=== PATIENT | female | born 1995 | race Caucasian/White ===

== ENCOUNTER 2022-12-25 12:26 | Emergency (ER) | payer BC ==
[~2022-12-25] VITALS: Ht 170.2 cm; Wt 115.7 kg
[2022-12-25 12:37] VITALS: BP 143/102
[2022-12-25 15:19] LABS: Source, Urine Clean Catch
[2022-12-25 15:27] LABS: Appearance, Urine Clear (Clear); Bilirubin, Urine Neg (Neg); Blood, Urine 5+ (Neg); Color, Urine Yellow (P-Yellow); Glucose Qualitative, Urine Neg (Neg); Ketones, Urine Neg (Neg); Leukocyte Esterase, Urine Neg (Neg); Nitrite, Urine Neg (Neg); Protein, Urine 2+ (Neg); Urobilinogen, Urine NORM (Normal)
[2022-12-25 15:43] LABS: Squamous Epithelial Cells Mod /hpf (Few)
[2022-12-25 15:44] LABS: Bacteria Many /hpf; Mucus Mod (0-Heavy)
[2022-12-25] MEDS ORDERED: CIPR500 PO (16:29)
[2022-12-25] MEDS ORDERED: Percocet 5-3251 EACH PO (16:29)
== END 2022-12-25 16:54 | disposition home or self-care (01) ==
LOC: ER 12:26
PROVIDERS: Student in an Organized Health Care Education/Training Program
DX: N12 Tubulo-interstitial nephritis, not specified as acute or chronic (principal)
CPT/HCPCS: 81001; 81025; 83605; 84703; 87077; 87086; 87186; 96361; 96365; 96375; 99284-25; A9270; J0696; J2060; J7030

== ENCOUNTER → 2022-12-25 | Outpatient (CLI) | payer BC ==
[~2022-12-25] MED LIST: CIPR500 PO; Percocet 5-3251 EACH PO
[2022-12-25 11:39] LABS: BASOPHILS ABSOLUTE AUTO 0.03 K/mm3 (0.00-0.23); BASOPHILS PERCENT AUTO 0 % (0-2); EOSINOPHILS ABSOLUTE AUTO 0.01 K/mm3 (0.00-0.68); EOSINOPHILS PERCENT AUTO 0 % (0-6); Hematocrit 43.4 % (33.0-51.0); IMMATURE GRAN ABSOLUTE AUTO 0.02 K/mm3 (0.00-0.10); IMMATURE GRAN PERCENT AUTO 0 % (0-1); LYMPHOCYTES ABSOLUTE AUTO 1.17 K/mm3 (0.84-5.20); LYMPHOCYTES PERCENT AUTO 11 % (21-46); MONOCYTES ABSOLUTE AUTO 0.94 K/mm3 (0.16-1.47); MONOCYTES PERCENT AUTO 9 % (4-13); Mean Corpuscular HGB 28.8 pg (26.0-34.0); Mean Corpuscular HGB Conc 34.6 g/dL (31.5-36.5); Mean Corpuscular Volume 83 fL (80-100); Mean Platelet Volume 9.4 fL (9.1-12.4); NEUTROPHILS ABSOLUTE AUTO 8.23 K/mm3 (1.96-9.15); NEUTROPHILS PERCENT AUTO 79 % (41-73); Platelet Count 228 K/mm3 (150-400); RDW Coefficient Variation 13.1 % (11.7-14.2); RDW Standard Deviation 39.4 fL (35.1-46.3); Red Blood Cell Count 5.21 M/mm3 (3.80-5.20)
[2022-12-25 11:59] LABS: Albumin, Blood 3.9 g/dL (3.4-5.0); Albumin/Globulin Ratio 0.8 (0.8-1.8); Bilirubin, Total 0.3 mg/dL (0.1-1.0); Bun/Creatinine Ratio 13.8 (12.0-20.0); Creatinine, Blood 0.8 mg/dL (0.40-1.00); Globulin, Blood 4.6 g/dL (2.2-4.0); Potassium, Blood 3.5 mmol/L (3.5-5.5); Total Protein, Blood 8.5 g/dL (6.4-8.2)
== END | disposition home or self-care (01) ==
LOC: LAB 11:35 → LAB SHORT 11:35
PROVIDERS: Physician Assistant
DX: R50.9 Fever, unspecified (principal); R10.9 Unspecified abdominal pain
CPT/HCPCS: 80053; 85025; 87077; 87086; 87186

== ENCOUNTER 2025-02-21 03:15 | Emergency (ER) | payer OTHER ==
[~2025-02-21] VITALS: Ht 170.2 cm; Wt 93.0 kg
[2025-02-21] MEDS ORDERED: NS 1,000 ML IV SCH (03:30)
[2025-02-21] MEDS ORDERED: Ondansetron HCl 2 MG / ML 2ML Vial IV ONE (03:30)
[2025-02-21 03:41] LABS: BASOPHILS ABSOLUTE AUTO 0.05 K/mm3 (0.00-0.23); BASOPHILS PERCENT AUTO 1 % (0-2); EOSINOPHILS ABSOLUTE AUTO 0.15 K/mm3 (0.00-0.68); EOSINOPHILS PERCENT AUTO 1 % (0-6); Hematocrit 42.6 % (33.0-51.0); Hemoglobin 14.4 g/dL (11.5-16.0); IMMATURE GRAN ABSOLUTE AUTO 0.03 K/mm3 (0.00-0.10); IMMATURE GRAN PERCENT AUTO 0 % (0-1); LYMPHOCYTES ABSOLUTE AUTO 2.93 K/mm3 (0.84-5.20); LYMPHOCYTES PERCENT AUTO 28 % (21-46); MONOCYTES ABSOLUTE AUTO 0.74 K/mm3 (0.16-1.47); MONOCYTES PERCENT AUTO 7 % (4-13); Mean Corpuscular HGB Conc 33.8 g/dL (31.5-36.5); Mean Corpuscular Volume 87 fL (80-100); NEUTROPHILS ABSOLUTE AUTO 6.58 K/mm3 (1.96-9.15); NEUTROPHILS PERCENT AUTO 63 % (41-73); NRBC ABSOLUTE 0.00 K/mm3 (0.00-0.02); NRBC Auto 0.0 /100 WBC (0.0-0.2); Platelet Count 244 K/mm3 (150-400); RDW Coefficient Variation 12.2 % (11.7-14.2); RDW Standard Deviation 39.1 fL (35.1-46.3)
[2025-02-21 03:59] LABS: Alanine Aminotransfer (ALT/SGP 23.0 U/L (12-78); Albumin, Blood 3.8 g/dL (3.4-5.0); Albumin/Globulin Ratio 0.9 (0.8-1.8); Anion Gap 10.0 mmol/L (3-11); Aspartate Aminotrans (AST/SGOT 17.0 U/L (12-37); Bilirubin, Total 0.6 mg/dL (0.1-1.0); Blood Urea Nitrogen 12.0 mg/dL (8-24); CO2, Blood 25.0 mmol/L (21-32); Calcium, Blood 8.9 mg/dL (8.5-10.1); Chloride, Blood 106.0 mmol/L (98-108); Creatinine, Blood 0.58 mg/dL (0.40-1.00); Globulin, Blood 4.2 g/dL (2.2-4.0); Glucose, Blood 112.0 mg/dL (70-99); Potassium, Blood 3.8 mmol/L (3.5-5.5); Sodium, Blood 137.0 mmol/L (136-145); Total Protein, Blood 8.0 g/dL (6.4-8.2)
[2025-02-21] MEDS ORDERED: Haloperidol Lactate Inj. 5 MG/ML Injection IV ONE (04:05)
[2025-02-21] MEDS ORDERED: D5W-1/2NS 1,000 ML IV SCH (04:05)
[2025-02-21 04:45] VITALS: BP 105/56
[2025-02-21 04:48] LABS: Source, Urine Voided
[2025-02-21 05:12] LABS: Bilirubin, Urine Neg (Neg); Color, Urine Yellow (P-Yellow); Glucose Qualitative, Urine Neg (Neg); Ketones, Urine Neg (Neg); Leukocyte Esterase, Urine 1+ (Neg); Protein, Urine 2+ (Neg); Specific Gravity, Urine 1.010 (1.003-1.022); Urobilinogen, Urine NORM (Normal)
[2025-02-21 05:21] LABS: Red Blood Cells, Urine 0-2 /hpf (0-2)
[2025-02-21] MEDS ORDERED: ONDA4ODT MM (05:23)
[2025-02-21] MEDS ORDERED: Vitamin B-625 MG PO (13:48)
== END 2025-02-21 05:42 | disposition home or self-care (01) ==
LOC: ER 03:15
PROVIDERS: Emergency Medicine
DX: O99.281 Endocrine, nutritional and metabolic diseases complicating pregnancy, first trimester (principal); M79.18 Myalgia, other site; O99.891 Other specified diseases and conditions complicating pregnancy; O21.9 Vomiting of pregnancy, unspecified; Z3A.01 Less than 8 weeks gestation of pregnancy; E86.0 Dehydration
CPT/HCPCS: 76801; 76817; 80053; 81001; 81003; 81025; 83690; 83735; 84702; 85025; 87077; 87086; 87186; 96361; 96365; 96374; 96375; 99283-25; 99284-25; A9270; J1630; J2405; J3475; J7030; J7042; J7120

== ENCOUNTER 2025-02-21 10:22 | Emergency (ER) | payer OTHER ==
[~2025-02-21] VITALS: Ht 170.2 cm; Wt 93.0 kg
[~2025-02-21 10:22] MED LIST changes: +ONDA4ODT MM
[2025-02-21] MEDS ORDERED: Ondansetron HCl 2 MG / ML 2ML Vial IV ONE (11:00)
[2025-02-21 11:07] LABS: BASOPHILS ABSOLUTE AUTO 0.02 K/mm3 (0.00-0.23); BASOPHILS PERCENT AUTO 0 % (0-2); EOSINOPHILS ABSOLUTE AUTO 0.00 K/mm3 (0.00-0.68); EOSINOPHILS PERCENT AUTO 0 % (0-6); Hematocrit 39.5 % (33.0-51.0); Hemoglobin 13.9 g/dL (11.5-16.0); IMMATURE GRAN ABSOLUTE AUTO 0.04 K/mm3 (0.00-0.10); IMMATURE GRAN PERCENT AUTO 0 % (0-1); LYMPHOCYTES ABSOLUTE AUTO 1.17 K/mm3 (0.84-5.20); LYMPHOCYTES PERCENT AUTO 10 % (21-46); MONOCYTES ABSOLUTE AUTO 0.40 K/mm3 (0.16-1.47); MONOCYTES PERCENT AUTO 3 % (4-13); Mean Corpuscular HGB Conc 35.2 g/dL (31.5-36.5); Mean Corpuscular Volume 85 fL (80-100); NEUTROPHILS ABSOLUTE AUTO 10.15 K/mm3 (1.96-9.15); NEUTROPHILS PERCENT AUTO 86 % (41-73); NRBC ABSOLUTE 0.00 K/mm3 (0.00-0.02); NRBC Auto 0.0 /100 WBC (0.0-0.2); Platelet Count 244 K/mm3 (150-400); RDW Coefficient Variation 12.1 % (11.7-14.2); RDW Standard Deviation 37.6 fL (35.1-46.3)
[2025-02-21 11:52] LABS: Alanine Aminotransfer (ALT/SGP 22.0 U/L (12-78); Albumin, Blood 3.5 g/dL (3.4-5.0); Albumin/Globulin Ratio 0.9 (0.8-1.8); Anion Gap 12.0 mmol/L (3-11); Aspartate Aminotrans (AST/SGOT 14.0 U/L (12-37); Beta HCG, Quantitative, Serum 18533.0 mIU/mL (0-3); Bilirubin, Total 0.5 mg/dL (0.1-1.0); Blood Urea Nitrogen 7.0 mg/dL (8-24); CO2, Blood 19.0 mmol/L (21-32); Calcium, Blood 8.2 mg/dL (8.5-10.1); Chloride, Blood 109.0 mmol/L (98-108); Creatinine, Blood 0.41 mg/dL (0.40-1.00); Globulin, Blood 4.1 g/dL (2.2-4.0); Glucose, Blood 127.0 mg/dL (70-99); Potassium, Blood 3.6 mmol/L (3.5-5.5); Sodium, Blood 136.0 mmol/L (136-145); Total Protein, Blood 7.6 g/dL (6.4-8.2)
[2025-02-21] MEDS ORDERED: Magnesium Sulf 2 GM/Water 50ML 50 ML IV ONE (12:10)
[2025-02-21] MEDS ORDERED: D5W-NS 1,000 ML IV SCH (12:10)
[2025-02-21 13:27] LABS: Source, Urine Clean Catch
[2025-02-21 13:48] LABS: Bilirubin, Urine Neg (Neg); Glucose Qualitative, Urine Neg (Neg); Ketones, Urine 1+ (Neg); Leukocyte Esterase, Urine Neg (Neg); Protein, Urine Neg (Neg); Specific Gravity, Urine 1.005 (1.003-1.022); Urobilinogen, Urine NORM (Normal)
[2025-02-21] MEDS ORDERED: Vitamin B-625 MG PO (13:48)
[2025-02-21 14:05] LABS: Color, Urine Pale Yellow (P-Yellow)
[2025-02-21 15:33] VITALS: BP 165/82
== END 2025-02-21 14:53 | disposition home or self-care (01) ==
LOC: ER 10:22
PROVIDERS: Emergency Medicine
DX: O99.281 Endocrine, nutritional and metabolic diseases complicating pregnancy, first trimester (principal); O99.891 Other specified diseases and conditions complicating pregnancy; E86.0 Dehydration; M79.18 Myalgia, other site; Z3A.01 Less than 8 weeks gestation of pregnancy
CPT/HCPCS: 76801; 76817; 80053; 81003; 83735; 84702; 85025; 96365; 96375; 99284-25; A9270; J2405; J3475; J7042; J7120

== ENCOUNTER 2025-03-01 00:52 | Day surgery (SDC) | payer OTHER ==
[~2025-03-01 00:52] MED LIST changes: +Vitamin B-625 MG PO
[2025-03-01] MEDS ORDERED: Ondansetron HCl 2 MG / ML 2ML Vial IV SCH (06:45)
[2025-03-01] MEDS ORDERED: PRAZ2 PO (08:02)
[2025-03-01] MEDS ORDERED: ESCI20 PO (08:03)
[2025-03-01] MEDS ORDERED: DESV50 PO (08:03)
[2025-03-01 08:05] VITALS: BP 133/65
== END 2025-03-01 09:34 | disposition home or self-care (01) ==
LOC: ATC 00:52
DX: O21.9 Vomiting of pregnancy, unspecified (principal); O99.611 Diseases of the digestive system complicating pregnancy, first trimester; K21.9 Gastro-esophageal reflux disease without esophagitis; Z88.1 Allergy status to other antibiotic agents; Z88.8 Allergy status to other drugs, medicaments and biological substances; Z3A.01 Less than 8 weeks gestation of pregnancy
CPT/HCPCS: 96365; 96375; C1751; J2405; J7120

== ENCOUNTER 2025-03-04 01:36 | Day surgery (SDC) | payer OTHER ==
[~2025-03-04 01:36] MED LIST changes: +DESV50 PO; +ESCI20 PO; +PRAZ2 PO
[2025-03-04] MEDS ORDERED: Ondansetron HCl 2 MG / ML 2ML Vial IV SCH (07:25)
[2025-03-04 16:00] VITALS: BP 107/63
== END 2025-03-04 17:10 | disposition home or self-care (01) ==
LOC: ATC 01:36
DX: O21.9 Vomiting of pregnancy, unspecified (principal); Z3A.00 Weeks of gestation of pregnancy not specified; Z88.1 Allergy status to other antibiotic agents; Z88.8 Allergy status to other drugs, medicaments and biological substances; Z79.899 Other long term (current) drug therapy
CPT/HCPCS: 96361; 96374; J2405; J7120

== ENCOUNTER 2025-03-06 05:31 | Day surgery (SDC) | payer OTHER ==
[2025-03-06] MEDS ORDERED: Ondansetron HCl 2 MG / ML 2ML Vial IV SCH (06:50)
[2025-03-06 09:07] VITALS: BP 114/52
[2025-03-06] MEDS ORDERED: METO10 PO (09:11)
[2025-03-06] MEDS ORDERED: FAMO20 PO (09:12)
[2025-03-06] MEDS ORDERED: ONDA4ODT MM (09:12)
== END 2025-03-06 10:10 | disposition home or self-care (01) ==
LOC: ATC 05:31
DX: O21.9 Vomiting of pregnancy, unspecified (principal); O99.280 Endocrine, nutritional and metabolic diseases complicating pregnancy, unspecified trimester; E04.9 Nontoxic goiter, unspecified; Z3A.00 Weeks of gestation of pregnancy not specified; Z79.899 Other long term (current) drug therapy; Z88.1 Allergy status to other antibiotic agents; Z88.8 Allergy status to other drugs, medicaments and biological substances
CPT/HCPCS: 96361; 96374; J2405; J7120

== ENCOUNTER 2025-03-08 01:46 | Day surgery (SDC) | payer OTHER ==
[~2025-03-08 01:46] MED LIST changes: +FAMO20 PO; +METO10 PO
[2025-03-08] MEDS ORDERED: Ondansetron HCl 2 MG / ML 2ML Vial IV SCH (06:55)
[2025-03-08 10:00] VITALS: BP 109/50
== END 2025-03-08 11:09 | disposition home or self-care (01) ==
LOC: ATC 01:46
DX: O21.9 Vomiting of pregnancy, unspecified (principal); O99.280 Endocrine, nutritional and metabolic diseases complicating pregnancy, unspecified trimester; E04.9 Nontoxic goiter, unspecified; Z88.8 Allergy status to other drugs, medicaments and biological substances; Z88.1 Allergy status to other antibiotic agents
CPT/HCPCS: 96361; 96374; J2405; J7120

== ENCOUNTER 2025-03-11 00:33 | Day surgery (SDC) | payer OTHER ==
[2025-03-11] MEDS ORDERED: Ondansetron HCl 2 MG / ML 2ML Vial IV SCH (07:05)
[2025-03-11 15:30] VITALS: BP 127/57
== END 2025-03-11 14:35 | disposition home or self-care (01) ==
LOC: ATC 00:33
DX: O21.9 Vomiting of pregnancy, unspecified (principal); O99.281 Endocrine, nutritional and metabolic diseases complicating pregnancy, first trimester; E04.9 Nontoxic goiter, unspecified; Z88.1 Allergy status to other antibiotic agents; Z88.8 Allergy status to other drugs, medicaments and biological substances; Z3A.00 Weeks of gestation of pregnancy not specified
CPT/HCPCS: 96361; 96374; J2405; J7120

== ENCOUNTER 2025-03-13 04:33 | Day surgery (SDC) | payer OTHER ==
[2025-03-13] MEDS ORDERED: Ondansetron HCl 2 MG / ML 2ML Vial IV SCH (06:55)
[2025-03-13 15:34] VITALS: BP 127/64
== END 2025-03-13 16:36 | disposition home or self-care (01) ==
LOC: ATC 04:33
DX: O21.9 Vomiting of pregnancy, unspecified (principal); Z88.1 Allergy status to other antibiotic agents; Z88.8 Allergy status to other drugs, medicaments and biological substances; Z79.899 Other long term (current) drug therapy
CPT/HCPCS: 96361; 96374; J2405; J7120

== ENCOUNTER 2025-03-15 01:37 | Day surgery (SDC) | payer OTHER ==
[2025-03-15] MEDS ORDERED: Ondansetron HCl 2 MG / ML 2ML Vial IV SCH (07:10)
[2025-03-15 16:05] VITALS: BP 111/58
== END 2025-03-15 17:28 | disposition home or self-care (01) ==
LOC: ATC 01:37
DX: O21.9 Vomiting of pregnancy, unspecified (principal); O99.280 Endocrine, nutritional and metabolic diseases complicating pregnancy, unspecified trimester; E04.9 Nontoxic goiter, unspecified; Z3A.00 Weeks of gestation of pregnancy not specified; Z79.899 Other long term (current) drug therapy; Z88.1 Allergy status to other antibiotic agents; Z88.8 Allergy status to other drugs, medicaments and biological substances
CPT/HCPCS: 96361; 96374; J2405; J7120

== ENCOUNTER 2025-03-18 13:49 | Day surgery (SDC) | payer OTHER ==
[~2025-03-18 13:49] MED LIST changes: +Ondansetron HCl 2 MG / ML 2ML Vial IV SCH
[2025-03-18 14:03] VITALS: BP 104/55
== END 2025-03-18 15:12 | disposition home or self-care (01) ==
LOC: ATC 13:49
DX: O21.9 Vomiting of pregnancy, unspecified (principal); Z3A.01 Less than 8 weeks gestation of pregnancy; Z88.1 Allergy status to other antibiotic agents; Z88.8 Allergy status to other drugs, medicaments and biological substances
CPT/HCPCS: 96361; 96374; J2405; J7120

== ENCOUNTER 2025-03-20 03:24 | Day surgery (SDC) | payer OTHER ==
[~2025-03-20 03:24] MED LIST changes: -Ondansetron HCl 2 MG / ML 2ML Vial IV SCH
[2025-03-20] MEDS ORDERED: Ondansetron HCl 2 MG / ML 2ML Vial IV SCH (07:10)
[2025-03-20 10:13] VITALS: BP 114/51
== END 2025-03-20 11:16 | disposition home or self-care (01) ==
LOC: ATC 03:24
DX: O21.9 Vomiting of pregnancy, unspecified (principal); O99.619 Diseases of the digestive system complicating pregnancy, unspecified trimester; K21.9 Gastro-esophageal reflux disease without esophagitis; O99.280 Endocrine, nutritional and metabolic diseases complicating pregnancy, unspecified trimester; E04.9 Nontoxic goiter, unspecified; Z3A.00 Weeks of gestation of pregnancy not specified; Z79.899 Other long term (current) drug therapy; Z88.1 Allergy status to other antibiotic agents; Z88.8 Allergy status to other drugs, medicaments and biological substances
CPT/HCPCS: 96361; 96374; J2405; J7120

== ENCOUNTER 2025-03-22 03:45 | Day surgery (SDC) | payer OTHER ==
[2025-03-22] MEDS ORDERED: Ondansetron HCl 2 MG / ML 2ML Vial IV SCH (07:15)
[2025-03-22] MEDS ORDERED: PYRIDOXINE HCL IV SCH (07:25)
[2025-03-22 12:38] VITALS: BP 130/75
== END 2025-03-22 11:15 | disposition home or self-care (01) ==
LOC: ATC 03:45
DX: O21.9 Vomiting of pregnancy, unspecified (principal); O99.280 Endocrine, nutritional and metabolic diseases complicating pregnancy, unspecified trimester; E04.9 Nontoxic goiter, unspecified; Z88.1 Allergy status to other antibiotic agents; Z88.8 Allergy status to other drugs, medicaments and biological substances
CPT/HCPCS: 96361; 96374; 96375; J2405; J3415; J7120

== ENCOUNTER 2025-03-25 01:48 | Day surgery (SDC) | payer OTHER ==
[2025-03-25] MEDS ORDERED: Ondansetron HCl 2 MG / ML 2ML Vial IV SCH (07:00)
[2025-03-25 10:11] VITALS: BP 130/58
== END 2025-03-25 11:17 | disposition home or self-care (01) ==
LOC: ATC 01:48
DX: O21.9 Vomiting of pregnancy, unspecified (principal); O99.280 Endocrine, nutritional and metabolic diseases complicating pregnancy, unspecified trimester; E04.9 Nontoxic goiter, unspecified; Z88.1 Allergy status to other antibiotic agents; Z88.8 Allergy status to other drugs, medicaments and biological substances; Z3A.00 Weeks of gestation of pregnancy not specified
CPT/HCPCS: 96361; 96374; J2405; J7120

== ENCOUNTER 2025-03-27 02:57 | Day surgery (SDC) | payer OTHER ==
[2025-03-27] MEDS ORDERED: Ondansetron HCl 2 MG / ML 2ML Vial IV SCH (07:00)
[2025-03-27 09:06] VITALS: BP 125/68
== END 2025-03-27 10:45 | disposition home or self-care (01) ==
LOC: ATC 02:57
DX: O21.9 Vomiting of pregnancy, unspecified (principal); O99.280 Endocrine, nutritional and metabolic diseases complicating pregnancy, unspecified trimester; E04.9 Nontoxic goiter, unspecified; Z3A.00 Weeks of gestation of pregnancy not specified; Z79.899 Other long term (current) drug therapy; Z88.1 Allergy status to other antibiotic agents; Z88.8 Allergy status to other drugs, medicaments and biological substances
CPT/HCPCS: 96361; 96374; J2405; J7120

== ENCOUNTER 2025-03-29 09:27 | Day surgery (SDC) | payer OTHER ==
[~2025-03-29 09:27] MED LIST changes: +Ondansetron HCl 2 MG / ML 2ML Vial IV SCH; +PYRIDOXINE HCL IV SCH
[2025-03-29 10:05] VITALS: BP 125/69
== END 2025-03-29 11:37 | disposition home or self-care (01) ==
LOC: ATC 09:27
DX: O21.9 Vomiting of pregnancy, unspecified (principal); Z88.1 Allergy status to other antibiotic agents; Z88.8 Allergy status to other drugs, medicaments and biological substances; Z79.899 Other long term (current) drug therapy
CPT/HCPCS: 96361; 96374; 96375; C1751; J2405; J3415; J7120

== ENCOUNTER 2025-04-01 02:27 | Day surgery (SDC) | payer OTHER ==
[~2025-04-01 02:27] MED LIST changes: -Ondansetron HCl 2 MG / ML 2ML Vial IV SCH; -PYRIDOXINE HCL IV SCH
[2025-04-01] MEDS ORDERED: Ondansetron HCl 2 MG / ML 2ML Vial IV SCH (06:00)
[2025-04-01 08:55] VITALS: BP 129/62
== END 2025-04-01 10:00 | disposition home or self-care (01) ==
LOC: ATC 02:27
DX: O21.9 Vomiting of pregnancy, unspecified (principal); E04.9 Nontoxic goiter, unspecified; Z88.1 Allergy status to other antibiotic agents; Z88.8 Allergy status to other drugs, medicaments and biological substances; Z79.899 Other long term (current) drug therapy
CPT/HCPCS: 76536; 96361; 96374; J2405; J7120

== ENCOUNTER 2025-04-05 01:07 | Day surgery (SDC) | payer OTHER ==
[2025-04-05] MEDS ORDERED: PYRIDOXINE HCL IV SCH (06:00)
[2025-04-05] MEDS ORDERED: Ondansetron HCl 2 MG / ML 2ML Vial IV SCH (07:00)
[2025-04-05 08:52] VITALS: BP 130/68
== END 2025-04-05 10:18 | disposition home or self-care (01) ==
LOC: ATC 01:07
DX: O21.9 Vomiting of pregnancy, unspecified (principal); O99.619 Diseases of the digestive system complicating pregnancy, unspecified trimester; K21.9 Gastro-esophageal reflux disease without esophagitis; O99.280 Endocrine, nutritional and metabolic diseases complicating pregnancy, unspecified trimester; E04.9 Nontoxic goiter, unspecified; Z79.899 Other long term (current) drug therapy; Z88.1 Allergy status to other antibiotic agents; Z88.8 Allergy status to other drugs, medicaments and biological substances
CPT/HCPCS: 96361; 96374; 96375; J2405; J3415; J7120

== ENCOUNTER 2025-04-08 00:48 | Day surgery (SDC) | payer OTHER ==
[2025-04-08] MEDS ORDERED: Ondansetron HCl 2 MG / ML 2ML Vial IV SCH (07:00)
[2025-04-08 10:07] VITALS: BP 116/63
== END 2025-04-08 11:22 | disposition home or self-care (01) ==
LOC: ATC 00:48
DX: O21.9 Vomiting of pregnancy, unspecified (principal); O99.280 Endocrine, nutritional and metabolic diseases complicating pregnancy, unspecified trimester; E04.9 Nontoxic goiter, unspecified; Z88.1 Allergy status to other antibiotic agents; Z88.8 Allergy status to other drugs, medicaments and biological substances
CPT/HCPCS: 96361; 96374; J2405; J7120

== ENCOUNTER 2025-04-10 04:03 | Day surgery (SDC) | payer OTHER ==
[2025-04-10] MEDS ORDERED: Ondansetron HCl 2 MG / ML 2ML Vial IV SCH (06:55)
[2025-04-10 10:28] VITALS: BP 123/64
== END 2025-04-10 11:36 | disposition home or self-care (01) ==
LOC: ATC 04:03
DX: O21.9 Vomiting of pregnancy, unspecified (principal); O99.280 Endocrine, nutritional and metabolic diseases complicating pregnancy, unspecified trimester; E04.9 Nontoxic goiter, unspecified; Z3A.00 Weeks of gestation of pregnancy not specified; Z79.899 Other long term (current) drug therapy; Z88.1 Allergy status to other antibiotic agents; Z88.8 Allergy status to other drugs, medicaments and biological substances
CPT/HCPCS: 96361; 96374; J2405; J7120

== ENCOUNTER 2025-04-12 00:01 | Day surgery (SDC) | payer OTHER ==
[2025-04-12] MEDS ORDERED: PYRIDOXINE HCL IV SCH (06:00)
[2025-04-12] MEDS ORDERED: Ondansetron HCl 2 MG / ML 2ML Vial IV SCH (07:00)
[2025-04-12 10:00] VITALS: BP 137/63
== END 2025-04-12 11:18 | disposition home or self-care (01) ==
LOC: ATC 00:01
DX: O21.9 Vomiting of pregnancy, unspecified (principal); O99.611 Diseases of the digestive system complicating pregnancy, first trimester; K21.9 Gastro-esophageal reflux disease without esophagitis
CPT/HCPCS: 96361; 96374; 96375; J2405; J3415; J7120

== ENCOUNTER 2025-04-15 01:09 | Day surgery (SDC) | payer OTHER ==
[2025-04-15] MEDS ORDERED: Ondansetron HCl 2 MG / ML 2ML Vial IV SCH (07:00)
[2025-04-15 09:04] VITALS: BP 130/70
== END 2025-04-15 10:15 | disposition home or self-care (01) ==
LOC: ATC 01:09
DX: O21.9 Vomiting of pregnancy, unspecified (principal); O99.280 Endocrine, nutritional and metabolic diseases complicating pregnancy, unspecified trimester; E04.9 Nontoxic goiter, unspecified; Z88.1 Allergy status to other antibiotic agents; Z88.8 Allergy status to other drugs, medicaments and biological substances
CPT/HCPCS: 96365; J2405; J7120

== ENCOUNTER 2025-04-17 01:11 | Day surgery (SDC) | payer OTHER ==
[2025-04-17] MEDS ORDERED: Ondansetron HCl 2 MG / ML 2ML Vial IV SCH (07:00)
[2025-04-17 13:55] VITALS: BP 133/65
== END 2025-04-17 14:54 | disposition home or self-care (01) ==
LOC: ATC 01:11
DX: O21.9 Vomiting of pregnancy, unspecified (principal); Z88.8 Allergy status to other drugs, medicaments and biological substances
CPT/HCPCS: 96361; 96374; J2405; J7120

== ENCOUNTER 2025-04-19 07:41 | Day surgery (SDC) | payer OTHER ==
[~2025-04-19 07:41] MED LIST changes: +Ondansetron HCl 2 MG / ML 2ML Vial IV SCH
[2025-04-19] MEDS ORDERED: PYRIDOXINE HCL IV SCH (08:00)
[2025-04-19 09:37] VITALS: BP 121/57
== END 2025-04-19 10:49 | disposition home or self-care (01) ==
LOC: ATC 07:41
DX: O21.9 Vomiting of pregnancy, unspecified (principal); Z88.8 Allergy status to other drugs, medicaments and biological substances; K21.9 Gastro-esophageal reflux disease without esophagitis; Z79.899 Other long term (current) drug therapy
CPT/HCPCS: 96361; 96374; 96375; J2405; J3415; J7120

== ENCOUNTER 2025-04-26 01:24 | Day surgery (SDC) | payer OTHER ==
[~2025-04-26 01:24] MED LIST changes: -Ondansetron HCl 2 MG / ML 2ML Vial IV SCH
[2025-04-26] MEDS ORDERED: PYRIDOXINE HCL IV SCH (06:00)
[2025-04-26] MEDS ORDERED: Ondansetron HCl 2 MG / ML 2ML Vial IV SCH (07:00)
[2025-04-26 09:51] VITALS: BP 124/69
== END 2025-04-26 11:01 | disposition home or self-care (01) ==
LOC: ATC 01:24
DX: O21.9 Vomiting of pregnancy, unspecified (principal); O99.611 Diseases of the digestive system complicating pregnancy, first trimester; K21.9 Gastro-esophageal reflux disease without esophagitis; Z88.8 Allergy status to other drugs, medicaments and biological substances; Z79.899 Other long term (current) drug therapy
CPT/HCPCS: 96361; 96374; 96375; J2405; J3415; J7120

== ENCOUNTER 2025-04-29 00:11 | Day surgery (SDC) | payer OTHER ==
[2025-04-29] MEDS ORDERED: Ondansetron HCl 2 MG / ML 2ML Vial IV SCH (06:00)
[2025-04-29 10:02] VITALS: BP 132/64
== END 2025-04-29 11:13 | disposition home or self-care (01) ==
LOC: ATC 00:11
DX: O21.9 Vomiting of pregnancy, unspecified (principal); O99.611 Diseases of the digestive system complicating pregnancy, first trimester; K21.9 Gastro-esophageal reflux disease without esophagitis; Z79.899 Other long term (current) drug therapy
CPT/HCPCS: 96361; 96374; J2405; J7120

== ENCOUNTER 2025-05-01 00:56 | Day surgery (SDC) | payer OTHER ==
[2025-05-01] MEDS ORDERED: Ondansetron HCl 2 MG / ML 2ML Vial IV SCH (07:00)
[2025-05-01 15:48] VITALS: BP 126/75
== END 2025-05-01 17:04 | disposition home or self-care (01) ==
LOC: ATC 00:56
DX: O21.9 Vomiting of pregnancy, unspecified (principal); O99.280 Endocrine, nutritional and metabolic diseases complicating pregnancy, unspecified trimester; E04.9 Nontoxic goiter, unspecified; Z88.1 Allergy status to other antibiotic agents; Z88.8 Allergy status to other drugs, medicaments and biological substances
CPT/HCPCS: 96361; 96374; J2405; J7120

== ENCOUNTER 2025-05-03 08:10 | Day surgery (SDC) | payer OTHER ==
[~2025-05-03 08:10] MED LIST changes: +Ondansetron HCl 2 MG / ML 2ML Vial IV SCH; +PYRIDOXINE HCL IV SCH
[2025-05-03 09:29] VITALS: BP 120/64
== END 2025-05-03 10:44 | disposition home or self-care (01) ==
LOC: ATC 08:10
DX: O21.9 Vomiting of pregnancy, unspecified (principal); O99.280 Endocrine, nutritional and metabolic diseases complicating pregnancy, unspecified trimester; E04.9 Nontoxic goiter, unspecified; Z88.1 Allergy status to other antibiotic agents; Z88.8 Allergy status to other drugs, medicaments and biological substances
CPT/HCPCS: 96361; 96374; 96375; J2405; J3415; J7120

== ENCOUNTER 2025-05-06 03:53 | Day surgery (SDC) | payer OTHER ==
[~2025-05-06 03:53] MED LIST changes: -Ondansetron HCl 2 MG / ML 2ML Vial IV SCH; -PYRIDOXINE HCL IV SCH
[2025-05-06] MEDS ORDERED: Ondansetron HCl 2 MG / ML 2ML Vial IV SCH (06:00)
[2025-05-06 09:02] VITALS: BP 121/59
== END 2025-05-06 10:17 | disposition home or self-care (01) ==
LOC: ATC 03:53
DX: O21.9 Vomiting of pregnancy, unspecified (principal); O99.280 Endocrine, nutritional and metabolic diseases complicating pregnancy, unspecified trimester; E04.9 Nontoxic goiter, unspecified; Z3A.00 Weeks of gestation of pregnancy not specified; Z79.899 Other long term (current) drug therapy; Z88.1 Allergy status to other antibiotic agents; Z88.8 Allergy status to other drugs, medicaments and biological substances
CPT/HCPCS: 96361; 96374; J2405; J7120

== ENCOUNTER 2025-05-08 02:26 | Day surgery (SDC) | payer OTHER ==
[2025-05-08] MEDS ORDERED: Ondansetron HCl 2 MG / ML 2ML Vial IV SCH (08:00)
[2025-05-08 10:05] VITALS: BP 117/57
== END 2025-05-08 11:20 | disposition home or self-care (01) ==
LOC: ATC 02:26
DX: O21.9 Vomiting of pregnancy, unspecified (principal); O99.280 Endocrine, nutritional and metabolic diseases complicating pregnancy, unspecified trimester; E04.9 Nontoxic goiter, unspecified; Z88.1 Allergy status to other antibiotic agents; Z88.8 Allergy status to other drugs, medicaments and biological substances
CPT/HCPCS: 96361; 96374; J2405; J7120

== ENCOUNTER 2025-05-10 00:42 | Day surgery (SDC) | payer OTHER ==
[2025-05-10] MEDS ORDERED: PYRIDOXINE HCL IV SCH (06:00)
[2025-05-10] MEDS ORDERED: Ondansetron HCl 2 MG / ML 2ML Vial IV SCH (06:00)
[2025-05-10 09:06] VITALS: BP 121/53
== END 2025-05-10 10:20 | disposition home or self-care (01) ==
LOC: ATC 00:42
DX: O21.9 Vomiting of pregnancy, unspecified (principal); Z88.1 Allergy status to other antibiotic agents; Z88.8 Allergy status to other drugs, medicaments and biological substances; Z79.899 Other long term (current) drug therapy
CPT/HCPCS: 96361; 96374; 96375; J2405; J3415; J7120

== ENCOUNTER 2025-05-13 02:01 | Day surgery (SDC) | payer OTHER ==
[2025-05-13] MEDS ORDERED: Ondansetron HCl 2 MG / ML 2ML Vial IV SCH (06:00)
[2025-05-13 09:04] VITALS: BP 130/64
== END 2025-05-13 10:36 | disposition home or self-care (01) ==
LOC: ATC 02:01
DX: O21.9 Vomiting of pregnancy, unspecified (principal); O99.611 Diseases of the digestive system complicating pregnancy, first trimester; K21.9 Gastro-esophageal reflux disease without esophagitis; Z88.8 Allergy status to other drugs, medicaments and biological substances
CPT/HCPCS: 96360; J2405; J7120

== ENCOUNTER 2025-05-15 00:19 | Day surgery (SDC) | payer OTHER ==
[2025-05-15] MEDS ORDERED: Ondansetron HCl 2 MG / ML 2ML Vial IV SCH (07:00)
== END 2025-05-15 10:19 | disposition home or self-care (01) ==
LOC: ATC 00:19
DX: O21.9 Vomiting of pregnancy, unspecified (principal); O99.611 Diseases of the digestive system complicating pregnancy, first trimester; K21.9 Gastro-esophageal reflux disease without esophagitis; Z88.1 Allergy status to other antibiotic agents; Z88.8 Allergy status to other drugs, medicaments and biological substances; Z79.899 Other long term (current) drug therapy
CPT/HCPCS: 96361; 96374; J2405; J7120

== ENCOUNTER 2025-05-17 01:13 | Day surgery (SDC) | payer OTHER ==
[2025-05-17] MEDS ORDERED: Ondansetron HCl 2 MG / ML 2ML Vial IV SCH (06:00)
[2025-05-17] MEDS ORDERED: PYRIDOXINE HCL IV SCH (06:00)
[2025-05-17 09:04] VITALS: BP 110/64
== END 2025-05-17 10:48 | disposition home or self-care (01) ==
LOC: ATC 01:13
DX: O21.9 Vomiting of pregnancy, unspecified (principal); O99.611 Diseases of the digestive system complicating pregnancy, first trimester; K21.9 Gastro-esophageal reflux disease without esophagitis; Z88.8 Allergy status to other drugs, medicaments and biological substances
CPT/HCPCS: 96361; 96374; J2405; J3415; J7120

== ENCOUNTER 2025-05-20 01:01 | Day surgery (SDC) | payer OTHER ==
[2025-05-20] MEDS ORDERED: Ondansetron HCl 2 MG / ML 2ML Vial IV SCH (07:00)
[2025-05-20 09:50] VITALS: BP 126/68
--- NOTE | 2025-05-20 11:10 | NUR ---
PT UP TO BATHROOM. PT VOMITTING.
== END 2025-05-20 11:23 | disposition home or self-care (01) ==
LOC: ATC 01:01
DX: O21.9 Vomiting of pregnancy, unspecified (principal); O99.280 Endocrine, nutritional and metabolic diseases complicating pregnancy, unspecified trimester; E04.9 Nontoxic goiter, unspecified; Z88.1 Allergy status to other antibiotic agents; Z88.8 Allergy status to other drugs, medicaments and biological substances; Z79.899 Other long term (current) drug therapy
CPT/HCPCS: 96361; 96374; J2405; J7120

== ENCOUNTER 2025-05-22 01:43 | Day surgery (SDC) | payer OTHER ==
[~2025-05-22 01:43] MED LIST changes: +Ondansetron HCl 2 MG / ML 2ML Vial IV PRN
[2025-05-22] MEDS ORDERED: Ondansetron HCl 2 MG / ML 2ML Vial IV SCH (06:50)
[2025-05-22 09:05] VITALS: BP 137/68
== END 2025-05-22 10:20 | disposition home or self-care (01) ==
LOC: ATC 01:43
DX: O21.9 Vomiting of pregnancy, unspecified (principal); O99.619 Diseases of the digestive system complicating pregnancy, unspecified trimester; K21.9 Gastro-esophageal reflux disease without esophagitis; O99.280 Endocrine, nutritional and metabolic diseases complicating pregnancy, unspecified trimester; E04.9 Nontoxic goiter, unspecified; Z3A.00 Weeks of gestation of pregnancy not specified; Z79.899 Other long term (current) drug therapy; Z88.1 Allergy status to other antibiotic agents; Z88.8 Allergy status to other drugs, medicaments and biological substances
CPT/HCPCS: 96360; 96374; J2405; J7120

== ENCOUNTER 2025-05-24 00:40 | Day surgery (SDC) | payer OTHER ==
[~2025-05-24 00:40] MED LIST changes: -Ondansetron HCl 2 MG / ML 2ML Vial IV PRN
[2025-05-24] MEDS ORDERED: Ondansetron HCl 2 MG / ML 2ML Vial IV SCH (06:00)
[2025-05-24] MEDS ORDERED: PYRIDOXINE HCL IV SCH (06:00)
[2025-05-24 09:05] VITALS: BP 113/58
== END 2025-05-24 10:13 | disposition home or self-care (01) ==
LOC: ATC 00:40
DX: O21.9 Vomiting of pregnancy, unspecified (principal); O99.611 Diseases of the digestive system complicating pregnancy, first trimester; K21.9 Gastro-esophageal reflux disease without esophagitis; Z79.899 Other long term (current) drug therapy
CPT/HCPCS: 96361; 96374; 96375; J2405; J3415; J7120

== ENCOUNTER 2025-05-27 00:37 | Day surgery (SDC) | payer OTHER ==
[2025-05-27] MEDS ORDERED: Ondansetron HCl 2 MG / ML 2ML Vial IV SCH (06:00)
[2025-05-27 09:11] VITALS: BP 115/69
== END 2025-05-27 10:16 | disposition home or self-care (01) ==
LOC: ATC 00:37
DX: O21.9 Vomiting of pregnancy, unspecified (principal); O99.280 Endocrine, nutritional and metabolic diseases complicating pregnancy, unspecified trimester; E04.9 Nontoxic goiter, unspecified; Z88.1 Allergy status to other antibiotic agents; Z88.8 Allergy status to other drugs, medicaments and biological substances
CPT/HCPCS: 96361; 96374; J2405; J7120

== ENCOUNTER 2025-05-29 07:20 | Day surgery (SDC) | payer OTHER ==
[~2025-05-29 07:20] MED LIST changes: +Ondansetron HCl 2 MG / ML 2ML Vial IV SCH
[2025-05-29 08:50] VITALS: BP 128/68
== END 2025-05-29 09:58 | disposition home or self-care (01) ==
LOC: ATC 07:20
DX: O21.9 Vomiting of pregnancy, unspecified (principal); Z79.899 Other long term (current) drug therapy; Z88.1 Allergy status to other antibiotic agents; Z88.8 Allergy status to other drugs, medicaments and biological substances
CPT/HCPCS: 96361; 96374; J2405; J7120

== ENCOUNTER 2025-06-03 00:32 | Day surgery (SDC) | payer OTHER ==
[~2025-06-03 00:32] MED LIST changes: -Ondansetron HCl 2 MG / ML 2ML Vial IV SCH
[2025-06-03] MEDS ORDERED: Ondansetron HCl 2 MG / ML 2ML Vial IV SCH (07:00)
[2025-06-03 07:56] VITALS: BP 119/78
== END 2025-06-03 09:09 | disposition home or self-care (01) ==
LOC: ATC 00:32
DX: O21.9 Vomiting of pregnancy, unspecified (principal); O99.611 Diseases of the digestive system complicating pregnancy, first trimester; K21.9 Gastro-esophageal reflux disease without esophagitis; Z88.1 Allergy status to other antibiotic agents; Z88.8 Allergy status to other drugs, medicaments and biological substances
CPT/HCPCS: 96361; 96374; J2405; J7120

== ENCOUNTER 2025-06-05 06:29 | Day surgery (SDC) | payer OTHER ==
[~2025-06-05 06:29] MED LIST changes: +Ondansetron HCl 2 MG / ML 2ML Vial IV SCH
[2025-06-05 10:10] VITALS: BP 112/68
== END 2025-06-05 11:27 | disposition home or self-care (01) ==
LOC: ATC 06:29
DX: O21.9 Vomiting of pregnancy, unspecified (principal); O99.611 Diseases of the digestive system complicating pregnancy, first trimester; K21.9 Gastro-esophageal reflux disease without esophagitis; Z88.8 Allergy status to other drugs, medicaments and biological substances; Z79.899 Other long term (current) drug therapy
CPT/HCPCS: 96361; 96374; J2405; J7120

== ENCOUNTER 2025-06-07 01:14 | Day surgery (SDC) | payer OTHER ==
[~2025-06-07 01:14] MED LIST changes: -Ondansetron HCl 2 MG / ML 2ML Vial IV SCH
[2025-06-07] MEDS ORDERED: Ondansetron HCl 2 MG / ML 2ML Vial IV SCH (06:00)
[2025-06-07] MEDS ORDERED: PYRIDOXINE HCL IV SCH (06:00)
[2025-06-07 09:25] VITALS: BP 130/64
== END 2025-06-07 10:45 | disposition home or self-care (01) ==
LOC: ATC 01:14
DX: O21.9 Vomiting of pregnancy, unspecified (principal); O99.611 Diseases of the digestive system complicating pregnancy, first trimester; K21.9 Gastro-esophageal reflux disease without esophagitis; Z88.1 Allergy status to other antibiotic agents; Z88.8 Allergy status to other drugs, medicaments and biological substances
CPT/HCPCS: 96361; 96374; 96375; J2405; J3415; J7120

== ENCOUNTER 2025-06-10 00:14 | Day surgery (SDC) | payer OTHER ==
[2025-06-10] MEDS ORDERED: Ondansetron HCl 2 MG / ML 2ML Vial IV SCH (06:00)
[2025-06-10 09:11] VITALS: BP 123/73
== END 2025-06-10 10:57 | disposition home or self-care (01) ==
LOC: ATC 00:14
DX: O21.9 Vomiting of pregnancy, unspecified (principal); O99.619 Diseases of the digestive system complicating pregnancy, unspecified trimester; K21.9 Gastro-esophageal reflux disease without esophagitis; Z88.1 Allergy status to other antibiotic agents; Z88.8 Allergy status to other drugs, medicaments and biological substances; Z79.899 Other long term (current) drug therapy
CPT/HCPCS: 96361; 96374; J2405; J7120

== ENCOUNTER 2025-06-12 01:32 | Day surgery (SDC) | payer OTHER ==
[2025-06-12] MEDS ORDERED: Ondansetron HCl 2 MG / ML 2ML Vial IV SCH (06:00)
[2025-06-12 15:13] VITALS: BP 125/73
== END 2025-06-12 16:59 | disposition home or self-care (01) ==
LOC: ATC 01:32
DX: O21.9 Vomiting of pregnancy, unspecified (principal); Z88.1 Allergy status to other antibiotic agents; Z88.8 Allergy status to other drugs, medicaments and biological substances; Z79.899 Other long term (current) drug therapy
CPT/HCPCS: 96361; 96374; C1751; J2405; J7120

== ENCOUNTER 2025-06-14 01:09 | Day surgery (SDC) | payer OTHER ==
[2025-06-14] MEDS ORDERED: Ondansetron HCl 2 MG / ML 2ML Vial IV SCH (06:55)
[2025-06-14] MEDS ORDERED: PYRIDOXINE HCL IV SCH (13:20)
[2025-06-14 13:46] VITALS: BP 122/72
== END 2025-06-14 14:55 | disposition home or self-care (01) ==
LOC: ATC 01:09
DX: O21.9 Vomiting of pregnancy, unspecified (principal); Z88.1 Allergy status to other antibiotic agents; Z88.8 Allergy status to other drugs, medicaments and biological substances; Z79.899 Other long term (current) drug therapy
CPT/HCPCS: 96361; 96374; 96375; J2405; J3415; J7120

== ENCOUNTER 2025-06-17 02:34 | Day surgery (SDC) | payer OTHER ==
[2025-06-17] MEDS ORDERED: Ondansetron HCl 2 MG / ML 2ML Vial IV SCH (07:20)
[2025-06-17 09:51] VITALS: BP 119/71
== END 2025-06-17 10:55 | disposition home or self-care (01) ==
LOC: ATC 02:34
DX: O21.9 Vomiting of pregnancy, unspecified (principal); O99.280 Endocrine, nutritional and metabolic diseases complicating pregnancy, unspecified trimester; E04.9 Nontoxic goiter, unspecified; Z88.1 Allergy status to other antibiotic agents; Z88.8 Allergy status to other drugs, medicaments and biological substances
CPT/HCPCS: 96361; 96374; J2405; J7120

== ENCOUNTER 2025-06-19 00:42 | Day surgery (SDC) | payer OTHER ==
[2025-06-19] MEDS ORDERED: Ondansetron HCl 2 MG / ML 2ML Vial IV SCH (07:00)
[2025-06-19 10:00] VITALS: BP 91/73
== END 2025-06-19 11:05 | disposition home or self-care (01) ==
LOC: ATC 00:42
DX: O21.9 Vomiting of pregnancy, unspecified (principal); Z3A.00 Weeks of gestation of pregnancy not specified; Z79.899 Other long term (current) drug therapy; Z88.1 Allergy status to other antibiotic agents; Z88.8 Allergy status to other drugs, medicaments and biological substances
CPT/HCPCS: 96361; 96374; J2405; J7120

== ENCOUNTER 2025-06-21 03:24 | Day surgery (SDC) | payer OTHER ==
[2025-06-21] MEDS ORDERED: PYRIDOXINE HCL IV SCH (06:00)
[2025-06-21] MEDS ORDERED: Ondansetron HCl 2 MG / ML 2ML Vial IV SCH (07:00)
[2025-06-21 09:09] VITALS: BP 113/61
== END 2025-06-21 10:13 | disposition home or self-care (01) ==
LOC: ATC 03:24
DX: O21.9 Vomiting of pregnancy, unspecified (principal); Z88.1 Allergy status to other antibiotic agents; Z88.8 Allergy status to other drugs, medicaments and biological substances
CPT/HCPCS: 96361; 96374; 96375; J2405; J3415; J7120

== ENCOUNTER 2025-06-24 04:32 | Day surgery (SDC) | payer OTHER ==
[2025-06-24] MEDS ORDERED: Ondansetron HCl 2 MG / ML 2ML Vial IV SCH (07:00)
[2025-06-24 09:10] VITALS: BP 121/69
== END 2025-06-24 10:16 | disposition home or self-care (01) ==
LOC: ATC 04:32
DX: O21.9 Vomiting of pregnancy, unspecified (principal); O99.281 Endocrine, nutritional and metabolic diseases complicating pregnancy, first trimester; E04.9 Nontoxic goiter, unspecified; Z88.1 Allergy status to other antibiotic agents; Z88.8 Allergy status to other drugs, medicaments and biological substances
CPT/HCPCS: 96361; 96374; 99211; J2405; J7120

== ENCOUNTER 2025-06-26 00:34 | Day surgery (SDC) | payer OTHER ==
[2025-06-26] MEDS ORDERED: Ondansetron HCl 2 MG / ML 2ML Vial IV SCH (06:00)
[2025-06-26 09:30] VITALS: BP 106/63
== END 2025-06-26 10:40 | disposition home or self-care (01) ==
LOC: ATC 00:34
DX: O21.9 Vomiting of pregnancy, unspecified (principal); O99.280 Endocrine, nutritional and metabolic diseases complicating pregnancy, unspecified trimester; E04.9 Nontoxic goiter, unspecified; Z88.1 Allergy status to other antibiotic agents; Z88.8 Allergy status to other drugs, medicaments and biological substances
CPT/HCPCS: 96361; 96374; J2405; J7120

== ENCOUNTER 2025-06-28 06:26 | Day surgery (SDC) | payer OTHER ==
[~2025-06-28 06:26] MED LIST changes: +PYRIDOXINE HCL IV SCH
[2025-06-28] MEDS ORDERED: Ondansetron HCl 2 MG / ML 2ML Vial IV SCH (07:00)
[2025-06-28 09:02] VITALS: BP 118/65
== END 2025-06-28 10:19 | disposition home or self-care (01) ==
LOC: ATC 06:26
DX: O21.9 Vomiting of pregnancy, unspecified (principal); O99.280 Endocrine, nutritional and metabolic diseases complicating pregnancy, unspecified trimester; E04.9 Nontoxic goiter, unspecified; Z88.1 Allergy status to other antibiotic agents; Z88.8 Allergy status to other drugs, medicaments and biological substances
CPT/HCPCS: 96374; 96375; J2405; J3415; J7120

== ENCOUNTER 2025-07-01 00:34 | Day surgery (SDC) | payer OTHER ==
[~2025-07-01 00:34] MED LIST changes: -PYRIDOXINE HCL IV SCH
[2025-07-01] MEDS ORDERED: Ondansetron HCl 2 MG / ML 2ML Vial IV SCH (07:00)
[2025-07-01 09:03] VITALS: BP 141/76
[2025-07-01 10:12] VITALS: BP 115/59
== END 2025-07-01 10:13 | disposition home or self-care (01) ==
LOC: ATC 00:34
DX: O21.9 Vomiting of pregnancy, unspecified (principal); O99.280 Endocrine, nutritional and metabolic diseases complicating pregnancy, unspecified trimester; E04.9 Nontoxic goiter, unspecified; Z88.1 Allergy status to other antibiotic agents; Z88.8 Allergy status to other drugs, medicaments and biological substances
CPT/HCPCS: 96361; 96374; J2405; J7120

== ENCOUNTER 2025-07-05 01:05 | Day surgery (SDC) | payer OTHER ==
[2025-07-05] MEDS ORDERED: Ondansetron HCl 2 MG / ML 2ML Vial IV SCH (06:00)
[2025-07-05] MEDS ORDERED: PYRIDOXINE HCL IV SCH (06:55)
[2025-07-05 10:40] VITALS: BP 129/61
== END 2025-07-05 12:04 | disposition home or self-care (01) ==
LOC: ATC 01:05
DX: O21.9 Vomiting of pregnancy, unspecified (principal); O99.280 Endocrine, nutritional and metabolic diseases complicating pregnancy, unspecified trimester; E04.9 Nontoxic goiter, unspecified; Z88.1 Allergy status to other antibiotic agents; Z88.8 Allergy status to other drugs, medicaments and biological substances
CPT/HCPCS: 96361; 96374; 96375; J2405; J3415; J7120

== ENCOUNTER 2025-07-08 00:24 | Day surgery (SDC) | payer OTHER ==
[2025-07-08] MEDS ORDERED: Ondansetron HCl 2 MG / ML 2ML Vial IV SCH (06:00)
[2025-07-08 09:25] VITALS: BP 105/61
== END 2025-07-08 10:29 | disposition home or self-care (01) ==
LOC: ATC 00:24
DX: O21.9 Vomiting of pregnancy, unspecified (principal); O99.280 Endocrine, nutritional and metabolic diseases complicating pregnancy, unspecified trimester; E04.9 Nontoxic goiter, unspecified; Z88.1 Allergy status to other antibiotic agents; Z88.8 Allergy status to other drugs, medicaments and biological substances; Z79.899 Other long term (current) drug therapy
CPT/HCPCS: 96360; 96374; C1751; J2405; J7120

== ENCOUNTER 2025-07-10 05:25 | Day surgery (SDC) | payer OTHER ==
[2025-07-10] MEDS ORDERED: Ondansetron HCl 2 MG / ML 2ML Vial IV SCH (07:00)
[2025-07-10 09:35] VITALS: BP 114/60
== END 2025-07-10 10:42 | disposition home or self-care (01) ==
LOC: ATC 05:25
DX: O21.9 Vomiting of pregnancy, unspecified (principal); O99.280 Endocrine, nutritional and metabolic diseases complicating pregnancy, unspecified trimester; E04.9 Nontoxic goiter, unspecified; O99.619 Diseases of the digestive system complicating pregnancy, unspecified trimester; K21.9 Gastro-esophageal reflux disease without esophagitis; Z3A.00 Weeks of gestation of pregnancy not specified; Z79.899 Other long term (current) drug therapy; Z88.1 Allergy status to other antibiotic agents; Z88.8 Allergy status to other drugs, medicaments and biological substances
CPT/HCPCS: 96361; 96374; J2405; J7120

== ENCOUNTER 2025-07-15 02:34 | Day surgery (SDC) | payer OTHER ==
[2025-07-15] MEDS ORDERED: Ondansetron HCl 2 MG / ML 2ML Vial IV SCH (06:00)
[2025-07-15] MEDS ORDERED: PYRIDOXINE HCL IV SCH (06:00)
[2025-07-15 09:40] VITALS: BP 111/59
== END 2025-07-15 10:48 | disposition home or self-care (01) ==
LOC: ATC 02:34
DX: O21.9 Vomiting of pregnancy, unspecified (principal); Z88.1 Allergy status to other antibiotic agents; Z88.8 Allergy status to other drugs, medicaments and biological substances
CPT/HCPCS: 96361; 96374; 96375; J2405; J3415; J7120

== ENCOUNTER 2025-07-17 07:14 | Day surgery (SDC) | payer OTHER ==
[~2025-07-17 07:14] MED LIST changes: +Ondansetron HCl 2 MG / ML 2ML Vial IV SCH
[2025-07-17] MEDS ORDERED: Ondansetron HCl 2 MG / ML 2ML Vial IV SCH (07:35)
[2025-07-17 08:43] VITALS: BP 117/58
== END 2025-07-17 09:51 | disposition home or self-care (01) ==
LOC: ATC 07:14
DX: O21.9 Vomiting of pregnancy, unspecified (principal); O99.280 Endocrine, nutritional and metabolic diseases complicating pregnancy, unspecified trimester; E04.9 Nontoxic goiter, unspecified; Z88.1 Allergy status to other antibiotic agents; Z88.8 Allergy status to other drugs, medicaments and biological substances
CPT/HCPCS: 96361; 96374; J2405; J7120